=== PATIENT | female | born 1950 | race Caucasian/White ===

== ENCOUNTER 2018-02-12 11:43 | Inpatient (IN) | payer OTHER ==
[~2018-02-12] VITALS: Ht 165.1 cm; Wt 67.6 kg
[2018-02-12 11:46] VITALS: BP 123/86
[2018-02-12] MEDS ORDERED: CYMBALTA60 MG PO (11:50)
[2018-02-12] MEDS ORDERED: KLONOPIN0.5 MG PO (11:53)
[2018-02-12] MEDS ORDERED: FLEXERIL PO (11:53)
[2018-02-12] MEDS ORDERED: LEVOXYL100 MCG PO (11:54)
[2018-02-12] MEDS ORDERED: TRAZODONE HCL50 MG PO (11:54)
[2018-02-12] MEDS ORDERED: XANAX 0.5 MG0.5 MG PO (11:55)
[2018-02-12 12:29] LABS: ABSOLUTE EOSINOPHILS 0.2 thou/uL (0.0-0.7); ABSOLUTE LYMPHOCYTES 1.2 thou/uL (0.8-5.3); ABSOLUTE NEUTROPHILS 7.6 thou/uL (1.6-8.1); BASOPHILS 0.3 %; EOSINOPHILS 2.1 %; HEMATOCRIT 39.2 % (37.0-47.0); LYMPHOCYTES 11.6 %; MCH 30.3 pg (26.0-34.0); MCHC 33.3 g/dL (28.0-37.0); MCV 91.1 fL (80.0-100.0); MONOCYTES 9.9 %; MPV 8.1 fl. (7.2-11.1); NUCLEATED RBCS 0 /100WBC; PLATELET COUNT* 288 thou/uL (150-400); POLYS 76.1 %; RDW-CV 15.9 % (10.5-14.5)
[2018-02-12 12:37] LABS: ANION GAP 6 mmol/L (7-16); BUN 18 mg/dL (7-18); CALCIUM 8.9 mg/dL (8.5-10.1); CHLORIDE 105 mmol/L (98-107); CO2 32 mmol/L (21-32); CREATININE 0.9 mg/dL (0.6-1.3); GLUCOSE 90 mg/dL (70-99); POTASSIUM 3.4 mmol/L (3.5-5.1); SODIUM 143 mmol/L (136-145)
[2018-02-12 12:42] LABS: APTT 28.5 Seconds (25.0-31.3); INR 1.1; PROTIME 10.4 Seconds (9.20-11.50)
[2018-02-12 12:48] LABS: ALBUMIN 3.5 g/dL (3.4-5.0); ALKALINE PHOSPHATASE 97 U/L (46-116); NT-PRO BRAIN NAT PEPTIDE 3826 pg/mL (<300); SGOT 13 U/L (15-37); SGPT 24 U/L (30-65); TOTAL BILIRUBIN 0.8 mg/dL (<0.1-1.0); TOTAL PROTEIN 6.5 g/dL (6.4-8.2); TROPONIN-I LEVEL <0.06 ng/mL (<0.06)
[2018-02-12 13:30] VITALS: BP 122/76
[2018-02-12 13:35] VITALS: BP 131/98
--- NOTE | 2018-02-12 13:35 | NUR ---
RECEIVED REPORT. PT TRANSFERRED TO ROOM 207 VIA CART. VSS. CARDIAC MONITORING IN PLACE AFIB WITH HR FLUCTUATING BETWEEN 90-150. CARDIZEM GTT INCREASED TO 10 ML/HR. PT VOICES NO COMPLAINTS OF PAIN OR DISCOMFORT AT THIS TIME. ADMISSION HISTORY AND ASSESSMENT COMPLETED CHARTED. PT ON 2L PER NC WITH O2 SAT A 98% PT ORIENTED TO ROOM AND CALL LIGHT. FALL RISK FORM SIGNED. WILL CONTINUE TO [facility] FOR DURAITON OF SHFIT.
[2018-02-12 15:12] VITALS: BP 124/79
--- NOTE | 2018-02-12 17:13 | NUR ---
VSS. CARDIAC MONTIORING IN PLACE NOTED SR WITH PAC'S. PT PROGRESSING TOWARDS GOALS. PT'S CARDIZEM GTT TITRATED TO 15ML/HR PER CARDIOLOGY. PT REMIANS ON 2L PER NC. PT TO START ON SOTALOL AND ELIQUIS TONIGHT- CARDIZEM GTT TO TITRATE TONGIHT PER CARDIO. PT IS UP INDPEENDENTLY IN ROOM. PT HAS HAD NO COMPLAINTS OF PAIN OR DISCOMFORT THIS SHIFT. CALL LIGHT IS WITHIN REACH. WILL CONTINUE TO MONITOR FOR DURAITON OF SHFIT.
--- NOTE | 2018-02-12 17:29 | EKG ---
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1950 Requested By: Mekhi Allen Order Number: [id number] MD: Martin Schmidt Measurements Intervals [place] Rate: 147 P: OR: QRS: 68 QRSD: 88 T: 21 QT: 306 QTc: 479 Interpretive Statements Atrial fibrillation with rapid V-rate ST depression, probably rate related Compared to ECG 05/15/2006 19:09:46 ST (T wave) deviation now present Sinus rhythm no longer present Electronically Signed On 02-12-2018 17:29:12 CDT by Martin Schmidt [email or web address] <ELECTRONICALLY SIGNED> By: Martin Schmidt MD, FAC 02/12/18 1729 1150 1150 Martin Schmidt MD, [facility] /EPI
--- NOTE | 2018-02-12 17:56 | 2DMMODE ---
[place] [address] 2 D/M-MODE ECHOCARDIOGRAM Name: LORIANGELINEZANDRA Room: [address] IN [facility]#: [id number] Admission: 02/12/18 Attend Phys: Giovanni Barrientos, Discharge: Date of : 46 Date of Service: 02/12/18 1755 Report #: [id number] THIS REPORT FOR: //name// APPROVED REPORT Study performed: 02/12/2018 16:23:27 EXAM: Comprehensive 2D, Doppler, and color-flow Echocardiogram Patient Location: In-Patient Room #: [facility] Status: routine BSA: 1.72 HR: 62 bpm BP: 124/79 mmHg Rhythm: Atrial Fibrillation Other Information Study Quality: Good Indications Atrial Fibrillation Dyspnea 2D Dimensions IVSd: 11.81 (7-11mm) LVOT Diam: 20.56 (18-24mm) LVDd: 41.45 mm PWd: 11.40 (7-11mm) Ascending Ao: 42.63 (22-36mm) LVDs: 34.72 (25-40mm) Aortic Root: 29.66 mm Volumes Left Atrial Volume (Systole) LA ESV Index: 94.60 mL/m2 Aortic Valve AoV Peak Efrem.: 1.61 m/s AO Peak Gr.: 10.36 mmHg LVOT Max P.82 mmHg AO Mean Gr.: 6.25 mmHg LVOT Mean P.91 mmHg LVOT Max V: 0.98 m/s AO V2 VTI: 29.91 cm LVOT Mean V: 0.63 m/s BALTAZAR (VTI): 2.25 cm2 LVOT V1 VTI: 20.25 cm AI Wheeler: 2.56 m/s2 AI PHT: 535.[place] [address] 2 D/M-MODE ECHOCARDIOGRAM Name: ZANDRA WRIGHT Room: [address] IN [facility]#: [id number] Admission: 02/12/18 Attend Phys: Giovanni Barrientos, Discharge: Date of : 46 Date of Service: 02/12/18 1755 Report #: [id number] Mean Gr.: 9.19 mmHg E/A Ratio: 1.51 MV Decel. Time: 457.26 ms MV E Max Efrem.: 1.92 m/s MV PHT: 132.61 ms MVA (PHT): 1.66 cm2 TDI E/Lateral E': 32.00 E/Medial E': 32.00 Medial E' Efrem.: 0.06 m/s Lateral E' Efrem.: 0.06 m/s Pulmonary Valve PV Peak Efrem.: 0.97 m/s PV Peak Gr.: 3.73 mmHg Tricuspid Valve TR Peak Gr.: 38.01 mmHg RVSP: 43.00 mmHg Left Ventricle The left ventricle is normal size. There is normal LV segmental wall motion. Mild concentric left ventricular hypertrophy. Left ventricular systolic function is normal. The left ventricular ejection fraction is within the normal range. LVEF is 55-60%. The left ventricular diastolic function is normal. Right Ventricle The right ventricle is normal size. The right ventricular systolic function is normal. Atria Left atrium is severely dilated. Right atrium is dilated. Aortic Valve Mild aortic valve sclerosis. Moderate aortic regurgitation. There is no aortic valvular stenosis. Mitral Valve There is mitral annular calcification. Moderate mitral regurgitation. Mild mitral stenosis. Tricuspid Valve The tricuspid valve is normal in structure. Mild tricuspid regurgitation. The RVSP is 50 mmHg. Pulmonic Valve The pulmonary valve is normal in structure. There is no [place]mon[place] [address] 2 D/M-MODE ECHOCARDIOGRAM Name: ZANDRA WRIGHT Room: [address] IN [facility]#: [id number] Admission: 02/12/18 Attend Phys: Giovanni Barrientos, Discharge: Date of : 46 Date of Service: 02/12/18 1755 Report #: [id number] Great Vessels Aortic root is moderately dilated. Ascending aorta is dilated. IVC is normal in size and collapses with >50% inspiration Pericardium Trace pericardial effusion. <Conclusion> Mild concentric left ventricular hypertrophy. LVEF is 55-60%. Left atrium is severely dilated. Mild aortic valve sclerosis. Moderate aortic regurgitation. Moderate mitral regurgitation. Mild tricuspid regurgitation. Mild mitral stenosis. <ELECTRONICALLY SIGNED> By: Martin Schmidt MD, FACC 02/12/181754 54 54 Martin Schmidt MD, FACC /INF
[2018-02-12 20:05] VITALS: BP 112/70
[2018-02-12 23:49] VITALS: BP 112/71
[2018-02-13 04:00] VITALS: BP 113/78
[2018-02-13 04:40] LABS: ABSOLUTE EOSINOPHILS 0.5 thou/uL (0.0-0.7); ABSOLUTE LYMPHOCYTES 1.3 thou/uL (0.8-5.3); ABSOLUTE MONOCYTES 0.7 thou/uL (0.0-1.2); BASOPHILS 0.5 %; EOSINOPHILS 6.5 %; HEMATOCRIT 35.5 % (37.0-47.0); HEMOGLOBIN 11.7 gm/dL (12.0-15.0); LYMPHOCYTES 16.8 %; MCH 30.1 pg (26.0-34.0); MCV 91.1 fL (80.0-100.0); MONOCYTES 9.5 %; MPV 8.2 fl. (7.2-11.1); NUCLEATED RBCS 0 /100WBC; PLATELET COUNT* 291 thou/uL (150-400); POLYS 66.7 %; RBC 3.89 mil/uL (4.20-5.00); RDW-CV 15.6 % (10.5-14.5); WBC 7.6 thou/uL (4.0-11.0)
[2018-02-13 05:18] LABS: ANION GAP 9 mmol/L (7-16); BUN 18 mg/dL (7-18); CALCIUM 8.7 mg/dL (8.5-10.1); CHLORIDE 105 mmol/L (98-107); CHOLESTEROL 143 mg/dL (<200); CO2 28 mmol/L (21-32); CREATININE 0.8 mg/dL (0.6-1.3); GLUCOSE 93 mg/dL (70-99); HDL CHOLESTEROL 47 mg/dL (>40); LDL CHOLESTEROL 82 mg/dL (<100); POTASSIUM 3.4 mmol/L (3.5-5.1); SERUM ASSESSMENT Clear; SODIUM 142 mmol/L (136-145); TRIGLYCERIDE 74 mg/dL (<150); VLDL 15 mg/dL (<40)
--- NOTE | 2018-02-13 06:29 | NUR ---
Pt in SR with PACs per monitor. HR upper 50s to lower 60s. Has been off diltiazem gtt since 254. VSS. No complaints. Will continue to monitor.
[2018-02-13 08:23] VITALS: BP 127/80
--- NOTE | 2018-02-13 09:34 | EKG ---
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
--- NOTE | 2018-02-13 10:21 | NUR ---
RECEIVED REPORT AND ASSUMED CARE AT 0730. VSS. CARDIAC MONITORING IN PLACE. PT DENIES ANY COMPLAINTS OF PAIN. ASSESSMENT COMPLETED CHARTED. PT UP AD BRAIN IN ROOM.PT ON RA. BED IN LOWEST POSITION, CALL LIGHT WITHIN REACH. DISCUSSED PLAN OF CARE WITH PT, VERBALIZED UNDERSTANDING. WILL CONTINUE TO MONITOR FOR REMAINDER OF THE SHIFT.
[2018-02-13 12:00] VITALS: BP 128/86
--- NOTE | 2018-02-13 14:04 | NUR ---
CM ASSESSMENT: Pt is A&O. Resides at home with her . Independent with ADLs. No DME. No hx of HH or SNF. Supportive family and friends that are involved in POC. Goal is to return home once medically stable. Following.
[2018-02-13 16:46] VITALS: BP 138/84
--- NOTE | 2018-02-13 18:43 | NUR ---
PT IN ROOM, ON RA. VSS. CARDIAC MONITORING IN PLACE, PT DENIES ANY COMPLAINTS OF PAIN. PT UP AD BRAIN IN ROOM. DISCUSSED PLAN OF CARE WITH PT AND MEDICATION CHANGES. PT VERBALIZED UNDERSTANDING. WILL CONTINUE TO MONITOR FOR REMAINDER OF THE SHIFT. BED IN LOWEST POSITION, CALL LIGHT WITHIN REACH
[2018-02-13 20:36] VITALS: BP 152/109
[2018-02-14] VITALS: BP 130/76
[2018-02-14 04:00] VITALS: BP 140/96
--- NOTE | 2018-02-14 08:31 | NUR ---
PT IS ABLE TO COMMUNICATE HER NEEDS TO STAFF EFFECTIVELY. SHE HAS DENIED THE AV FOR PAIN MEDICATION UP TO THIS TIME. POSSIBLE DISCHARGE TODAY PENDING CARDIOLOGY APPROVAL.
[2018-02-14 08:36] VITALS: BP 140/91
[2018-02-14 09:21] VITALS: BP 140/91
--- NOTE | 2018-02-14 10:04 | NUR ---
RECEIVED REPORT AND ASSUMED CARE AT 730. VSS. CARDIAC MONITORING IN PLACE. PT DENIES ANY COMPLAINTS OF PAIN. ASSESSMENT COMPLETED CHARTED. PT WANTING TO GO HOME TODAY. PT ON RA, UP AD BRAIN IN ROOM. BED IN LOWEST POSITION. CALL LIGHT WITHIN REACH. WILL CONTINUE TO MONITOR FOR REMAINDER OF THE SHIFT
[2018-02-14 12:07] VITALS: BP 115/74
--- NOTE | 2018-02-14 12:26 | NUR ---
CONTINUE TO FOLLOW, PT READY TO GO HOME TODAY. DENIES ANY NEEDS. AWAIT FINAL DC ORDERS, DISCUSSED WITH DR PEÑA
--- NOTE | 2018-02-14 14:28 | EKG ---
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1950 Requested By: Martin Schmidt Order Number: [id number] Reading MD: Leighton Gonzalez Measurements Intervals [place] Rate: 64 P: 40 SC: 149 QRS: 49 QRSD: 101 T: 7 QT: 463 QTc: 478 Interpretive Statements Sinus rhythm Multiple premature complexes, vent & supraven Compared to ECG 02/13/2018 08:09:12 Sinus bradycardia no longer present Electronically Signed On 02-14-2018 14:28:37 CDT by Leighton Gonzalez [email or web address] <ELECTRONICALLY SIGNED> By: Leighton Gonzalez MD, FACC 02/14/18 1428 08 0817 Leighton Gonzalez MD, [facility] /EPI
[2018-02-14] MEDS ORDERED: PROTONIX40 M1 PO (14:48)
[2018-02-14] MEDS ORDERED: SORINE 80 MG TA80 M1 PO (14:51)
[2018-02-14] MEDS ORDERED: ELIQUIS5 MG PO (14:56)
[2018-02-14 15:02] VITALS: BP 140/91
--- NOTE | 2018-02-14 15:22 | NUR ---
DISCHARGE ORDERS GIVEN BY PHYSICIAN. PAPERWORK COMPLETED BY NURSING. PT DENIES ANY COMPLAINTS OF PAIN. IV AND CARDIAC MONITORING DISCONTINUED. NEW PRESCRIPTIONS GIVEN TO PT. ALL BELONGINGS GATHERED AND GIVEN TO PT. DISCHARGE PAPERWORK DISCUSSED WITH PT, ALL QUESTIONS AND CONCERNS ADDRESSED AT THIS TIME. PT ESCORTED BY NURSING TO PERSONAL CAR WITH SPOUSE.
--- NOTE | 2018-02-15 12:21 | CON ---
[address] [address] CONSULTATION Name: ZANDRA WRIGHT Room: [address] IN M.R.#: [id number] Admission: 02/12/18 Attend Phys: Giovanni Barrientos MD Discharge: 02/14/18 Date of : 46 Report #: [id number] THIS REPORT FOR: //name// CC: Giovanni Garza DO DATE OF SERVICE: 02/12/2018 HISTORY OF PRESENT ILLNESS: The patient is a 67-year-old white female who I was asked to see in the hospital today after she was noted to be in atrial fibrillation. The patient has no previous history of heart disease. She was doing well until the past several days. She has felt lightheaded as if she is going to fall down. She did notice some cough and shortness of breath. She denied any significant chest pain, palpitations. She has had no recent fever or bleeding. Denied any vomiting. She went to see Dr. Garza today, was noted to have intermittent episodes of atrial fibrillation. She was sent over to the Emergency Room and admitted for further evaluation and treatment. In the ER, she was started on IV diltiazem. PAST MEDICAL HISTORY: Significant for tonsillectomy, hysterectomy, knee surgery, cholecystectomy. She has a history of depression. Her only medication on admission included an antidepressant. She has no history of hypertension or diabetes. ALLERGIES: She has no known drug allergies. FAMILY HISTORY: Negative for heart disease. SOCIAL HISTORY: She is . She and her live in [place]. She is not working at this time. Smokes half pack of cigarettes a day. No alcohol abuse. REVIEW OF SYSTEMS: She has had no history of stroke or asthma. She has had a hiatal hernia. No history of liver disease or kidney disease. She has melanoma removed from her skin in the past. She has a history of depression. PHYSICAL EXAMINATION: GENERAL: Revealed a middle-aged female, lying in bed. She appeared in no distress. VITAL SIGNS: She had a blood pressure 120/80, pulse is 90. She is afebrile. HEENT: She was anicteric, conjunctivae pink. Mucous membranes moist. NECK: Veins nondistended. No carotid bruits. Neck supple. CHEST: Clear to auscultation. CARDIOVASCULAR: Irregular rhythm. No significant murmur. ABDOMEN: Soft, [place] [address] CONSULTATION Name: ZANDRA WRIGHT Room: [address]#: [id number] Admission: 02/12/18 Attend Phys: Giovanni Barrientos MD Discharge: 02/14/18 Date of : 46 Report #: [id number] EXTREMITIES: Had no edema. Dorsalis pedis pulse 3+ bilaterally. SKIN: Warm, dry. NEUROLOGIC: Nonfocal. LYMPHATICS: No adenopathy. MUSCULOSKELETAL: No joint effusion. DIAGNOSTIC DATA: Her ECG in Dr. Garza's office showed a sinus rhythm, short episodes of rapid atrial fibrillation. In the hospital here at [facility] since her admission, she has been in atrial fibrillation with rapid ventricular response rate. She has also had short episodes of sinus rhythm. Her workup in the Emergency Room today: She had portable chest x-ray that showed mild cardiomegaly, mild pulmonary vascular congestion. CT scan of the head without contrast because of her dizziness showed no acute abnormalities. LABORATORY DATA: Sodium 143, creatinine 0.9. Liver function studies were normal. Troponin 0.06. BNP 3826. D-dimer 0.39. White blood cell count 10.0, hemoglobin 13. IMPRESSION AND RECOMMENDATIONS: 1. Paroxysmal atrial fibrillation. I would recommend an echocardiogram and thyroid function studies. I would recommend starting the patient on sotalol. The patient has a ILA score of 1. I would start anticoagulation at this time. 2. Tobacco abuse. 3. Hiatal hernia. 4. Previous removal of melanoma. 5. Chronic bronchitis. <ELECTRONICALLY SIGNED> By: Martin Schmidt MD, FACC 02/15/18 1221 1542 1837Dasatinder Schmidt MD, FACC /nt
== END 2018-02-14 15:34 | disposition home or self-care (01) | DRG 308 ==
LOC: M.ERS 11:43 → M.TBA-ER 12:31 → M.2W 12:31
PROVIDERS: Family Medicine; ADMIT Internal Medicine
PROC: B24BZZ4 Ultrasonography of Heart with Aorta, Transesophageal (ICD-10-PCS; principal; 2018-02-12)
DX: I48.0 Paroxysmal atrial fibrillation (principal); I50.31 Acute diastolic (congestive) heart failure; K21.9 Gastro-esophageal reflux disease without esophagitis; F32.9 Major depressive disorder, single episode, unspecified; K44.9 Diaphragmatic hernia without obstruction or gangrene; F41.0 Panic disorder [episodic paroxysmal anxiety]; E87.6 Hypokalemia; F17.210 Nicotine dependence, cigarettes, uncomplicated; Z79.899 Other long term (current) drug therapy; Z90.710 Acquired absence of both cervix and uterus; Z90.49 Acquired absence of other specified parts of digestive tract

== ENCOUNTER → 2018-03-20 | Outpatient (CLI) | payer OTHER ==
[~2018-03-20] MED LIST: CYMBALTA60 MG PO; ELIQUIS5 MG PO; FLEXERIL PO; KLONOPIN0.5 MG PO; LEVOXYL100 MCG PO; PROTONIX40 M1 PO; SORINE 80 MG TA80 M1 PO; TRAZODONE HCL50 MG PO; XANAX 0.5 MG0.5 MG PO
== END ==
LOC: M.RAD 10:08
DX: Z12.31 Encounter for screening mammogram for malignant neoplasm of breast (principal)

== ENCOUNTER → 2018-03-27 | Outpatient (CLI) | payer OTHER | LOC: M.RAD 03-24 14:30 | DX: R92.8 Other abnormal and inconclusive findings on diagnostic imaging of breast (principal) ==

== ENCOUNTER → 2018-12-05 | Outpatient (CLI) | payer OTHER | LOC: M.CT 13:00 | DX: H57.9 Unspecified disorder of eye and adnexa (principal) ==